=== PATIENT | female | born 1965 | race Caucasian/White ===

== ENCOUNTER 2025-03-23 07:57 | Outpatient (RCR) | payer MEDICARE, MEDICAID, SELFPAY | END 2025-05-10 07:44 | disposition home or self-care (01) | LOC: HO.PT 07:57 | PROVIDERS: PCP Nurse Practitioner Family; Visit Provider Surgery | DX: R15.9 Full incontinence of feces (principal) | CPT/HCPCS: 97110; 97112; 97140; 97162; 97535 ==